=== PATIENT | female | born 1985 | race African-American/Black ===

== ENCOUNTER 2018-12-26 17:26 | Emergency (ER) | payer MEDICAID ==
[~2018-12-26] VITALS: Ht 165.1 cm; Wt 54.0 kg
[2018-12-26] MEDS ORDERED: SODIUM CHLORIDE 0.9% 1,000 ML IV ONE (21:52)
[2018-12-26] MEDS ORDERED: ACETAMINOPHEN 650MG/20.3ML UDC PO ONE (22:30)
[2018-12-26 23:01] LABS: BASOPHILS % 0.7 % (0.0-2.0); EOSINOPHILS % 2.6 % (0.0-5.0); HEMATOCRIT. 32.7 % (36.0-48.0); HEMOGLOBIN. 11.3 g/dL (12.0-16.0); LYMPHOCYTES % 24.1 % (20.0-50.0); MEAN CORPUSCULAR HEMOGLOBIN 30.4 pg (28.0-32.0); MEAN CORPUSCULAR VOLUME 87.8 fL (81.0-99.0); MEAN PLATELET VOLUME 8.5 fl (7.4-10.4); MONOCYTES % 6.5 % (2.0-8.0); NEUTROPHILS % 66.1 % (40.0-76.0); PLATELET 295 x1000/uL (130-400); RED BLOOD CELL COUNT 3.72 mill/uL (4.2-5.4); RED CELL DISTRIBUTION WIDTH 13.1 % (11.6-14.6)
[2018-12-26 23:04] LABS: CLARITY URINE TURBID (CLEAR); COLOR URINE DARK YELLOW (YELLOW); KETONES URINE NEGATIVE (NEGATIVE); LEUKOCYTE ESTERASE URINE 2+ (NEGATIVE); NITRITE URINE NEGATIVE (NEGATIVE); OCCULT BLOOD URINE 3+ (NEGATIVE); PROTEIN URINE 2+ (NEGATIVE); SPECIFIC GRAVITY URINE 1.014 (1.005-1.030); UROBILINOGEN URINE 0.2 E.U./dL (0.2-1.0)
[2018-12-26 23:06] LABS: CHLORIDE 107 mEq/L (98-107)
[2018-12-26 23:07] LABS: PROTHROMBIN TIME 10.3 sec (9.6-11.0)
[2018-12-26 23:30] LABS: B-HCG QUANTITATIVE 57881 mIU/mL (<3)
[2018-12-27 02:12] VITALS: BP 95/56
== END 2018-12-27 02:13 | disposition home or self-care (01) ==
LOC: ER 17:26
DX: O26.891 Other specified pregnancy related conditions, first trimester (principal); O23.41 Unspecified infection of urinary tract in pregnancy, first trimester; O20.9 Hemorrhage in early pregnancy, unspecified; Z3A.13 13 weeks gestation of pregnancy
CPT/HCPCS: 36415; 76801; 76817; 80053; 81003; 81025; 84702; 85025; 85610; 86850; 86900; 86901; 96360; 99284; J7030; Z7610

== ENCOUNTER 2019-06-13 20:50 | Inpatient (IN) | payer MEDICAID ==
[~2019-06-13] VITALS: Ht 157.5 cm; Wt 64.4 kg
[2019-06-13] MEDS ORDERED: DEXT 5%/LR + PITOCIN 20UNITS/L 1,000 ML IV ONE (21:58)
[2019-06-13] MEDS ORDERED: DEXT 5%/LR + PITOCIN 20UNITS/L 1,000 ML IV SCH (23:11)
[2019-06-13] MEDS ORDERED: RHO(D) IMMUNE GLOBULIN 300 MCG/SYR IM PRN (23:15)
[2019-06-13] MEDS ORDERED: LANOLIN OINT 7GM TUBE TOP PRN (23:15)
[2019-06-13] MEDS ORDERED: METHYLERGONOVINE MALEATE 0.2 MG/ML IM PRN (23:15)
[2019-06-13] MEDS ORDERED: IBUPROFEN 400MG TABLET PO PRN (23:15)
[2019-06-13] MEDS ORDERED: LACTATED RINGERS 1,000 ML IV SCH (23:47)
[2019-06-14 00:03] LABS: CLARITY URINE CLOUDY (CLEAR); COLOR URINE YELLOW (YELLOW); KETONES URINE 2+ (NEGATIVE); LEUKOCYTE ESTERASE URINE 1+ (NEGATIVE); NITRITE URINE NEGATIVE (NEGATIVE); OCCULT BLOOD URINE NEGATIVE (NEGATIVE); PH URINE 5.5 (4.5-8.0); PROTEIN URINE NEGATIVE (NEGATIVE); SPECIFIC GRAVITY URINE 1.013 (1.005-1.030); UROBILINOGEN URINE 0.2 E.U./dL (0.2-1.0)
[2019-06-14 00:03] LABS: BASOPHILS % 0.5 % (0.0-2.0); EOSINOPHILS % 0.7 % (0.0-5.0); HEMATOCRIT. 38.5 % (36.0-48.0); HEMOGLOBIN. 13.3 g/dL (12.0-16.0); LYMPHOCYTES % 25.2 % (20.0-50.0); MEAN CORPUSCULAR VOLUME 87.1 fL (81.0-99.0); MEAN PLATELET VOLUME 9.9 fl (7.4-10.4); MONOCYTES % 8.3 % (2.0-8.0); NEUTROPHILS % 65.3 % (40.0-76.0); PLATELET 240 x1000/uL (130-400); RED BLOOD CELL COUNT 4.42 mill/uL (4.2-5.4); RED CELL DISTRIBUTION WIDTH 13.8 % (11.6-14.6)
[2019-06-14 00:24] LABS: INR 0.9; PARTIAL THROMBOPLASTIN TIME 30.8 sec (23.4-31.0); PROTHROMBIN TIME 9.7 sec (9.6-11.0)
[2019-06-14 00:27] LABS: *AMPHETAMINES SCREEN URINE NEGATIVE (NEGATIVE); *BARBITURATES SCREEN URINE NEGATIVE (NEGATIVE); *BENZODIAZEPINES SCREEN URINE NEGATIVE (NEGATIVE); *COCAINE SCREEN URINE NEGATIVE (NEGATIVE); CANNABINOID URINE SCREEN NEGATIVE (NEGATIVE); METHADONE URINE SCREEN NEGATIVE (NEGATIVE); OPIATES URINE SCREEN NEGATIVE (NEGATIVE); PHENCYCLIDINE URINE SCREEN NEGATIVE (NEGATIVE)
[2019-06-14 00:48] LABS: HEPATITIS B SURFACE ANTIGEN NEGATIVE
[2019-06-14 06:14] LABS: BASOPHILS % 0.9 % (0.0-2.0); EOSINOPHILS % 0.8 % (0.0-5.0); HEMATOCRIT. 35.4 % (36.0-48.0); HEMOGLOBIN. 12.2 g/dL (12.0-16.0); LYMPHOCYTES % 17.2 % (20.0-50.0); MEAN CORPUSCULAR HEMOGLOBIN 29.9 pg (28.0-32.0); MEAN PLATELET VOLUME 9.3 fl (7.4-10.4); MONOCYTES % 10.8 % (2.0-8.0); NEUTROPHILS % 70.3 % (40.0-76.0); PLATELET 230 x1000/uL (130-400); RED BLOOD CELL COUNT 4.08 mill/uL (4.2-5.4); RED CELL DISTRIBUTION WIDTH 13.8 % (11.6-14.6)
[2019-06-14 07:30] VITALS: BP 93/51
[2019-06-14] MEDS ORDERED: PRENATAL VIT/FE FUMARATE/FA TABLET PO SCH (09:00)
[2019-06-14] MEDS: IBUPROFEN 800MG TABLET PO PRN ×2 (10:20→16:48)
[2019-06-14 14:00] VITALS: BP 96/54
[2019-06-14 22:00] VITALS: BP 97/43
[2019-06-15 06:39] VITALS: BP 103/46
[2019-06-15] MEDS ORDERED: FERR325T6 MT (07:44)
[2019-06-15] MEDS ORDERED: MULT1TAB67 MT (07:44)
[2019-06-15] MEDS ORDERED: IBUP-2029 MT (07:44)
[2019-06-15 07:45] VITALS: BP 105/57
== END 2019-06-15 13:40 | disposition home or self-care (01) | DRG 560 ==
LOC: 8 EST LDRP 20:50 → OBSVTOIN 20:50 → 8EST 06-14 00:10
PROVIDERS: ADMIT Obstetrics & Gynecology; ATTEND Obstetrics & Gynecology
PROC: 10E0XZZ Delivery of Products of Conception, External Approach (ICD-10-PCS; principal; 2019-06-13)
DX: O80 Encounter for full-term uncomplicated delivery (principal); Z37.0 Single live birth; Z3A.38 38 weeks gestation of pregnancy
CPT/HCPCS: 36415; 80305; 81003; 85025; 86592; 86703; 86762; 86850; 86900; 87340; 99281; J2590

== ENCOUNTER 2021-07-05 19:50 | Emergency (ER) | payer MEDICAID ==
[~2021-07-05] VITALS: Ht 157.5 cm; Wt 50.7 kg
[~2021-07-05 19:50] MED LIST: FERR325T6 MT; IBUP-2029 MT; MULT-622 MT
[2021-07-05 21:45] LABS: BASOPHILS % 0.6 % (0.0-2.0); EOSINOPHILS % 1.6 % (0.0-5.0); HEMOGLOBIN. 12.9 g/dL (12.0-16.0); LYMPHOCYTES % 34.2 % (20.0-50.0); MEAN CORPUSCULAR HEMOGLOBIN 29.7 pg (28.0-32.0); MEAN CORPUSCULAR VOLUME 84.9 fL (81.0-99.0); MEAN PLATELET VOLUME 8.5 fl (7.4-10.4); MONOCYTES % 7.3 % (2.0-8.0); NEUTROPHILS % 56.3 % (40.0-76.0); PLATELET 327 x1000/uL (130-400); RED BLOOD CELL COUNT 4.35 mill/uL (4.2-5.4); RED CELL DISTRIBUTION WIDTH 12.7 % (11.6-14.6)
[2021-07-05 21:48] LABS: CHLORIDE 108 mEq/L (98-107)
[2021-07-05 22:12] LABS: B-HCG QUANTITATIVE 37967 mIU/mL (<3)
[2021-07-05 22:15] LABS: CLARITY URINE CLEAR (CLEAR); COLOR URINE YELLOW (YELLOW); KETONES URINE NEGATIVE (NEGATIVE); LEUKOCYTE ESTERASE URINE NEGATIVE (NEGATIVE); NITRITE URINE NEGATIVE (NEGATIVE); OCCULT BLOOD URINE NEGATIVE (NEGATIVE); PH URINE 7.5 (4.5-8.0); PROTEIN URINE NEGATIVE (NEGATIVE); SPECIFIC GRAVITY URINE 1.014 (1.005-1.030); UROBILINOGEN URINE 0.2 E.U./dL (0.2-1.0)
[2021-07-06] VITALS: BP 101/64
== END 2021-07-06 00:01 | disposition home or self-care (01) ==
LOC: ER 19:50
DX: O20.0 Threatened abortion (principal); R10.9 Unspecified abdominal pain; Z3A.01 Less than 8 weeks gestation of pregnancy
CPT/HCPCS: 36415; 71045; 76801; 80053; 81003; 81025; 84702; 85025; 86850; 86900; 93005; 99285

== ENCOUNTER 2022-02-12 01:40 | Inpatient (IN) | payer MEDICAID ==
[~2022-02-12] VITALS: Ht 157.5 cm; Wt 59.9 kg
[2022-02-12] MEDS ORDERED: METHYLERGONOVINE MALEATE 0.2 MG/ML IM PRN ×3 (02:45→10:15)
[2022-02-12] MEDS ORDERED: MISOPROSTOL 100MCG TABLET VG SCH (02:45)
[2022-02-12] MEDS ORDERED: LIDOCAINE HCL 1% 10 MG/ML 10ML VIAL IJ SCH (02:45)
[2022-02-12] MEDS ORDERED: LACTATED RINGERS 1,000 ML IV SCH (02:45)
[2022-02-12] MEDS ORDERED: NALOXONE HCL 0.4 MG/ML 1ML VIAL IM PRN (02:45)
[2022-02-12] MEDS ORDERED: RHO(D) IMMUNE GLOBULIN 300 MCG/SYR IM ONE (02:45)
[2022-02-12] MEDS ORDERED: CARBOPROST TROMETHAMINE 250 MCG/ML AMPUL IM PRN (02:45)
[2022-02-12] MEDS ORDERED: BUTORPHANOL TARTRATE 2 MG/ML VIAL IV PRN (02:45)
[2022-02-12 03:23] LABS: CHLORIDE 107 mEq/L (98-107); CLARITY URINE CLEAR (CLEAR); COLOR URINE YELLOW (YELLOW); KETONES URINE NEGATIVE (NEGATIVE); LEUKOCYTE ESTERASE URINE NEGATIVE (NEGATIVE); NITRITE URINE NEGATIVE (NEGATIVE); OCCULT BLOOD URINE NEGATIVE (NEGATIVE); PROTEIN URINE NEGATIVE (NEGATIVE); SPECIFIC GRAVITY URINE 1.009 (1.005-1.030); UROBILINOGEN URINE 0.2 E.U./dL (0.2-1.0)
[2022-02-12 03:24] LABS: BASOPHILS % 0.7 % (0.0-2.0); EOSINOPHILS % 1.1 % (0.0-5.0); HEMATOCRIT. 38.4 % (36.0-48.0); HEMOGLOBIN. 12.7 g/dL (12.0-16.0); LYMPHOCYTES % 19.1 % (20.0-50.0); MEAN CORPUSCULAR HEMOGLOBIN 29.8 pg (28.0-32.0); MEAN CORPUSCULAR VOLUME 90.4 fL (81.0-99.0); MEAN PLATELET VOLUME 9.1 fl (7.4-10.4); MONOCYTES % 9.4 % (2.0-8.0); NEUTROPHILS % 69.7 % (40.0-76.0); PLATELET 247 x1000/uL (130-400); RED BLOOD CELL COUNT 4.24 mill/uL (4.2-5.4); RED CELL DISTRIBUTION WIDTH 15.3 % (11.6-14.6)
[2022-02-12 03:29] LABS: PARTIAL THROMBOPLASTIN TIME 28.3 sec (23.4-31.0); PROTHROMBIN TIME 10.3 sec (9.6-11.0)
[2022-02-12 03:40] LABS: *AMPHETAMINES SCREEN URINE NEGATIVE (NEGATIVE); *BARBITURATES SCREEN URINE NEGATIVE (NEGATIVE); *BENZODIAZEPINES SCREEN URINE NEGATIVE (NEGATIVE); *COCAINE SCREEN URINE NEGATIVE (NEGATIVE); CANNABINOID URINE SCREEN NEGATIVE (NEGATIVE); METHADONE URINE SCREEN NEGATIVE (NEGATIVE); OPIATES URINE SCREEN NEGATIVE (NEGATIVE); PHENCYCLIDINE URINE SCREEN NEGATIVE (NEGATIVE)
[2022-02-12 04:19] LABS: HEPATITIS B SURFACE ANTIGEN NEGATIVE
[2022-02-12] MEDS ORDERED: ROPIVACAINE HCL/PF EPIDURAL 200 ML EPI SCH (05:30)
[2022-02-12] MEDS ORDERED: FERR-71 MT (06:44)
[2022-02-12] MEDS ORDERED: PNV1TABL50 PO (06:44)
[2022-02-12] MEDS: OXYTOCIN 30 UNITS/500ML NS PMX 500 ML IV SCH ×2 (09:54→09:55)
[2022-02-12] MEDS ORDERED: ACETAMINOPHEN 500MG TABLET PO PRN (10:15)
[2022-02-12] MEDS ORDERED: IBUPROFEN 400MG TABLET PO PRN (10:15)
[2022-02-12] MEDS ORDERED: GLYCERIN/WITCH HAZEL LEAF MEDICATED PAD TOP PRN (10:15)
[2022-02-12] MEDS ORDERED: ACETAMINOPHEN WITH CODEINE 300/30MG TABLET PO PRN (10:15)
[2022-02-12] MEDS ORDERED: HEMORRHOIDAL SUPP PR PRN (10:15)
[2022-02-12] MEDS ORDERED: OXYTOCIN 30 UNITS/500ML NS PMX 500 ML IV SCH (10:15)
[2022-02-12] MEDS ORDERED: DIPHENHYDRAMINE 25MG CAPSULE PO PRN (10:15)
[2022-02-12] MEDS ORDERED: NALOXONE HCL 0.4MG/ML VIAL IV PRN (10:15)
[2022-02-12] MEDS ORDERED: LANOLIN OINT 7GM TUBE TOP PRN (10:15)
[2022-02-12] MEDS ORDERED: BISACODYL 10MG SUPP PR PRN (10:15)
[2022-02-12 11:40] VITALS: BP 97/50
[2022-02-12 12:10] VITALS: BP 95/49
[2022-02-12] MEDS: IBUPROFEN 800MG TABLET PO PRN ×2 (14:05→21:48)
[2022-02-12 16:50] VITALS: BP 93/45
[2022-02-12] MEDS: SIMETHICONE 80MG TABLET CHEW PO SCH ×2 (18:53→21:48)
[2022-02-12] MEDS: CALCIUM CARBONATE 500MG TABLET CHEW PO PRN (18:53)
[2022-02-12] MEDS: MAGNESIUM/ALUMINUM HYDROXIDE/SIMETHICONE 30ML UDC PO SCH ×2 (18:55→21:49)
[2022-02-12 20:00] VITALS: BP 95/50
[2022-02-12] MEDS: DOCUSATE SODIUM 100MG CAPSULE PO SCH (21:48)
[2022-02-13 04:00] VITALS: BP 113/68
[2022-02-13 07:01] LABS: BASOPHILS % 0.8 % (0.0-2.0); EOSINOPHILS % 1.7 % (0.0-5.0); HEMATOCRIT. 35.8 % (36.0-48.0); HEMOGLOBIN. 12.1 g/dL (12.0-16.0); LYMPHOCYTES % 17.8 % (20.0-50.0); MEAN CORPUSCULAR VOLUME 88.5 fL (81.0-99.0); MEAN PLATELET VOLUME 9.2 fl (7.4-10.4); MONOCYTES % 6.3 % (2.0-8.0); NEUTROPHILS % 73.4 % (40.0-76.0); PLATELET 230 x1000/uL (130-400); RED BLOOD CELL COUNT 4.05 mill/uL (4.2-5.4); RED CELL DISTRIBUTION WIDTH 14.8 % (11.6-14.6)
[2022-02-13 08:00] VITALS: BP 81/44
[2022-02-13] MEDS: MAGNESIUM/ALUMINUM HYDROXIDE/SIMETHICONE 30ML UDC PO SCH ×2 (08:24→20:56)
[2022-02-13] MEDS: FERROUS SULFATE 325MG TABLET PO SCH ×2 (08:24→16:27)
[2022-02-13] MEDS: SIMETHICONE 80MG TABLET CHEW PO SCH ×3 (08:25→20:55)
[2022-02-13] MEDS: PRENATAL VIT/FE FUMARATE/FA TABLET PO SCH (08:25)
[2022-02-13 16:15] VITALS: BP 98/48
[2022-02-13] MEDS: CALCIUM CARBONATE 500MG TABLET CHEW PO PRN (16:27)
[2022-02-13] MEDS: DOCUSATE SODIUM 100MG CAPSULE PO SCH (20:55)
[2022-02-13] MEDS: IBUPROFEN 800MG TABLET PO PRN (20:57)
[2022-02-13 22:00] VITALS: BP 101/51
[2022-02-14 04:29] VITALS: BP 98/64
[2022-02-14 07:45] VITALS: BP 98/57
[2022-02-14] MEDS ORDERED: NORE0.3520 MT (08:00)
[2022-02-14 08:09] VITALS: BP 98/64
[2022-02-14] MEDS: CALCIUM CARBONATE 500MG TABLET CHEW PO PRN (08:09)
[2022-02-14] MEDS: FERROUS SULFATE 325MG TABLET PO SCH (08:09)
[2022-02-14] MEDS: PRENATAL VIT/FE FUMARATE/FA TABLET PO SCH (08:09)
[2022-02-14] MEDS: SIMETHICONE 80MG TABLET CHEW PO SCH (08:10)
== END 2022-02-14 13:20 | disposition home or self-care (01) | DRG 560 ==
LOC: 8 EST LDRP 01:40 → INTOOBSV 01:40 → OBSVTOIN 01:40 → 8EST 12:10
PROVIDERS: ADMIT Obstetrics & Gynecology; ATTEND Obstetrics & Gynecology
PROC: 10E0XZZ Delivery of Products of Conception, External Approach (ICD-10-PCS; principal; 2022-02-12)
DX: O77.0 Labor and delivery complicated by meconium in amniotic fluid (principal); Z37.0 Single live birth; D57.3 Sickle-cell trait; O99.02 Anemia complicating childbirth; Z3A.38 38 weeks gestation of pregnancy; Z64.1 Problems related to multiparity; Z20.822 Contact with and (suspected) exposure to COVID-19
CPT/HCPCS: 36415; 80053; 80305; 81003; 85025; 86592; 86703; 86762; 86850; 86900; 87340; 87426; 99281; G0378; J0595; A4315; J2590